=== PATIENT | male | born 1950 | race Two or more races ===

== ENCOUNTER 2020-04-17 02:39 | Emergency (ER) | payer OTHER ==
[~2020-04-17] VITALS: Ht 152.4 cm; Wt 65.8 kg
[2020-04-17] MEDS ORDERED: NEURONTIN800 MG (02:53)
[2020-04-17] MEDS ORDERED: FINASTERIDE1 MG (02:54)
[2020-04-17] MEDS ORDERED: TAMS0.4C (02:54)
[2020-04-17] MEDS ORDERED: TENORMIN50 M1 (02:54)
[2020-04-17] MEDS ORDERED: NORVASC5 MG (02:54)
== END 2020-04-17 09:36 | disposition home or self-care (01) ==
LOC: ER 02:39
DX: N40.0 Benign prostatic hyperplasia without lower urinary tract symptoms (principal); R33.8 Other retention of urine